=== PATIENT | male | born 2000 | race African-American/Black ===

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

== ENCOUNTER 2022-05-08 01:45 | Emergency (ER) | payer BC, SELFPAY ==
[2022-05-08] MEDS ORDERED: Ondansetron PF 4 MG/2 ML Vial ONE (02:07)
[2022-05-08] MEDS ORDERED: Sodium Chloride 0.9% 1,000 ML ONE (02:07)
[2022-05-08 02:27] LABS: Hemoglobin 15.6 g/dL (14.0-18.0); Mean Corpuscular HGB CONC 30.4 g/dL (32.0-36.0); Mean Corpuscular Hemoglobin 27.8 pg (27.0-31.0); Mean Corpuscular Volume 91.3 fL (78.0-98.0); Platelet Count 228 thou/uL (130-400); RBC Distribution Width 12.8 % (11.5-14.5); Red Blood Cell (RBC) Count 5.61 mill/uL (4.70-6.10); White Blood Cell (WBC) Count 21.9 thou/uL (4.8-10.8)
[2022-05-08 02:29] LABS: Band 5 % (5-11); Lymphocytes 17 % (21-51); Monocytes 6 % (0-10); Neutrophil 72 % (42-75)
[2022-05-08 02:31] LABS: MDiff Complete? YES
[2022-05-08 03:00] LABS: ALT (SGPT) 28 U/L (8-55); AST (SGOT) 32 U/L (5-34); Albumin 4.7 g/dL (3.5-5.0); Alkaline Phosphatase 75 U/L (40-110); Anion Gap 18 mmol/L (10-20); BUN (Urea Nitrogen) 19 mg/dL (8.9-20.6); Bilirubin, Total 1.1 mg/dL (0.2-1.2); CK (CPK) 404 U/L (30-200); Calc. Creatinine Clearance 0 mL/min (70-130); Calcium 10.1 mg/dL (7.8-10.44); Carbon Dioxide 23 mmol/L (22-29); Chloride 103 mmol/L (98-107); Estimated GFR 114; Glucose 88 mg/dL (70-105); Potassium 3.9 mmol/L (3.5-5.1); Protein, Total 7.7 g/dL (6.0-8.3); Sodium 140 mmol/L (136-145)
== END 2022-05-08 04:15 | disposition home or self-care (01) ==
LOC: NAV ERS 01:45
DX: M62.82 Rhabdomyolysis (principal); F17.210 Nicotine dependence, cigarettes, uncomplicated
CPT/HCPCS: 80053; 82550; 84484; 85025; 93005; 96361; 96374; J2405; J7050

== ENCOUNTER 2022-10-02 19:52 | Emergency (ER) | payer BC ==
[2022-10-02] MEDS ORDERED: cefTRIAXone\\ROCEPHIN 500 MG VIAL ONE (20:33)
[2022-10-02] MEDS ORDERED: Doxycycline 100 MG CAP ONE (20:33)
[2022-10-02] MEDS ORDERED: Sterile Water 10 ML ONE (20:34)
[2022-10-02 20:54] LABS: Bilirubin Negative (Negative); Blood, Urine Negative (Negative); Clarity Clear (Clear); Glucose, Urine (Dipstick) Negative (Negative); Ketone, Urine Negative (Negative); Leukocyte Negative (Negative); Nitrite Negative (Negative); Protein, Urine (Dipstick) Trace mg/dL (Neg-Trace); Specific Gravity, Urine 1.025 (1.005-1.030)
[2022-10-03 14:58] LABS: Chlam.trachomatis by PCR,Urine Not Detected (NotDetected)
[2022-10-03 17:56] LABS: Syphilis Antibody Index 22.21 S/CO (<1.00 Non-Reactive)
[2022-10-03 18:08] LABS: Syphilis Antibody REACTIVE (Nonreactive)
== END 2022-10-02 21:41 | disposition home or self-care (01) ==
LOC: NAV ERS 19:52
DX: N50.812 Left testicular pain (principal); F17.210 Nicotine dependence, cigarettes, uncomplicated
CPT/HCPCS: 81003; 86593; 86780; 87491; 87591; 96372; 99284; J0696

== ENCOUNTER 2022-12-16 16:23 | Emergency (ER) | payer BC | END 2022-12-16 16:48 | disposition home or self-care (01) | LOC: NAV ERS 16:23 | DX: K04.7 Periapical abscess without sinus (principal); K02.9 Dental caries, unspecified; Z87.891 Personal history of nicotine dependence | CPT/HCPCS: 99282 ==

== ENCOUNTER 2023-02-10 10:05 | Emergency (ER) | payer BC, SELFPAY | END 2023-02-10 10:49 | disposition home or self-care (01) | LOC: NAV ERS 10:05 | DX: K04.7 Periapical abscess without sinus (principal); Z87.891 Personal history of nicotine dependence | CPT/HCPCS: 99282 ==